=== PATIENT | female | born 1985 | race Caucasian/White ===

== ENCOUNTER 2016-11-28 03:44 | Emergency (ER) | payer SELFPAY ==
[~2016-11-28] VITALS: Ht 170.2 cm; Wt 72.6 kg
[2016-11-28] MEDS ORDERED: LORAZEPAM INJ 2 MG/ML VIAL ONE (03:59)
[2016-11-28] MEDS ORDERED: LORAZEPAM INJ 2 MG/ML VIAL IM ONE (04:00)
[2016-11-28 04:18] LABS: BASOPHILS % (AUTO) 0.3 % (0.0-2.0); EOSINOPHILS # (AUTO) 0.2 /CMM (0.0-0.7); EOSINOPHILS % (AUTO) 1.6 % (0.0-6.0); HEMATOCRIT 36 % (33-45); HEMOGLOBIN 11.9 g/dL (11.5-14.8); LYMPHOCYTES # (AUTO) 2.8 /CMM (0.8-4.8); LYMPHOCYTES % (AUTO) 28.9 % (20.0-44.0); MEAN CORPUSCULAR HEMOGLOBIN 31 PG (26.0-33.0); MEAN CORPUSCULAR HGB CONC 33 g/dl (31.0-36.0); MEAN CORPUSCULAR VOLUME 93 fL (82-100); MONOCYTES # (AUTO) 0.7 /CMM (0.1-1.30); MONOCYTES % (AUTO) 7.5 % (2.0-12.0); NEUTROPHILS % (AUTO) 61.7 % (43.0-81.0); PLATELET COUNT (AUTO) 268 /CMM (150-450); RDW COEFFICIENT OF VARIATION 14.7 (11.5-15.0); RED BLOOD CELL COUNT(AUTO) 3.87 MIL/uL (4.0-5.2); WHITE BLOOD COUNT (AUTO) 9.7 K/uL (4.3-11.0)
[2016-11-28 04:32] LABS: ALANINE AMINOTRANSFERASE 48 U/L (12-78); ALBUMIN 3.3 g/dL (3.4-5.0); ALCOHOL, BLOOD < 3 mg/dL (0-0); ALKALINE PHOSPHATASE 102 U/L (46-116); ASPARTATE AMINOTRANSFERASE 45 U/L (15-37); BILIRUBIN,DIRECT 0.1 mg/dL (0.0-0.2); BILIRUBIN,TOTAL 0.3 mg/dL (0.2-1.0); CALCIUM, SERUM 8.6 mg/dL (8.5-10.1); CARBON DIOXIDE 29 mmol/L (21-32); CHLORIDE 105 mmol/L (98-107); CREATININE 0.7 mg/dL (0.6-1.3); GLUCOSE 117 mg/dL (74-106); SALICYLATE 3.7 mg/dL (2.8-20.0); SODIUM SERUM 142 mmol/L (136-145); TOTAL PROTEIN, SERUM 6.6 g/dL (6.4-8.2); UREA NITROGEN, BLOOD 22 mg/dL (7-18)
[2016-11-28 04:33] LABS: POTASSIUM 2.8 mmol/L (3.5-5.1)
[2016-11-28 04:34] LABS: ACETAMINOPHEN 0 ug/ml (10-30)
--- NOTE | 2016-11-28 04:48 | NUR ---
URINE SPECIMEN COLLECTED VIA IN & OUT CATH.
[2016-11-28] MEDS ORDERED: POTASSIUM CHLORIDE 20 MEQ TAB.PRT.SR PO ONE ×3 (05:07→05:30)
--- NOTE | 2016-11-28 05:16 | NUR ---
POTASSIUM CHLORIDE 60 MEQ PO GIVEN FOR HYPOKALEMIA.
[2016-11-28 05:31] LABS: APPEARANCE,URINE CLEAR (CLEAR); BILIRUBIN,URINE NEGATIVE (NEGATIVE); BLOOD, URINE NEGATIVE Ery/uL (NEGATIVE); COLOR,URINE YELLOW (YELLOW); KETONES,URINE NEGATIVE (NEGATIVE); LEUKOCYTE ESTERASE ,URINE NEGATIVE (NEGATIVE); NITRITE, URINE NEGATIVE (NEGATIVE); PROTEIN,URINE NEGATIVE (NEGATIVE); UGLUCOSE NEGATIVE (NEGATIVE); UROBILINOGEN,URINE 0.2 EU/dL (0.2)
[2016-11-28 05:42] LABS: PREGNANCY TEST URINE QUAL NEGATIVE (NEGATIVE)
[2016-11-28 11:25] VITALS: BP 110/68
== END 2016-11-28 12:01 | disposition home or self-care (01) ==
LOC: ER 03:47
DX: E87.6 Hypokalemia (principal); F19.10 Other psychoactive substance abuse, uncomplicated
CPT/HCPCS: 36415; 80048; 80076; 80305; 80329; 81001; 82962; 84703; 85025; 96372; 99284; A4606; G0480 ×2; J2060; Z7610; 81000-TC

== ENCOUNTER 2017-01-18 13:43 | Emergency (ER) | payer SELFPAY ==
[~2017-01-18] VITALS: Ht 157.5 cm; Wt 80.3 kg
[2017-01-18 13:43] VITALS: BP 116/77
--- NOTE | 2017-01-18 13:50 | NUR ---
bibra from a friend's house dt bizzare behavior. Per report, pt was tring to break things from her friend's house. Patient received, alert and awake, still noted with bizzare behavior, laughing with no apparent reason, skin is warm to touch and non diaphoretic. afebrile. vss
[2017-01-18] MEDS ORDERED: diphenhydrAMINE HCL 50 MG/ML VIAL ONE (13:56)
[2017-01-18] MEDS ORDERED: LORAZEPAM INJ 2 MG/ML VIAL ONE (13:56)
[2017-01-18] MEDS ORDERED: HALOPERIDOL LACTATE INJ 5 MG/ML VIAL ONE (13:56)
[2017-01-18] MEDS ORDERED: diphenhydrAMINE HCL 50 MG/ML VIAL IM ONE (14:00)
[2017-01-18] MEDS ORDERED: LORAZEPAM INJ 2 MG/ML VIAL IM ONE (14:00)
[2017-01-18] MEDS ORDERED: HALOPERIDOL LACTATE INJ 5 MG/ML VIAL IM ONE (14:00)
[2017-01-18 14:05] LABS: BASOPHILS % (AUTO) 0.3 % (0.0-2.0); EOSINOPHILS # (AUTO) 0.3 /CMM (0.0-0.7); EOSINOPHILS % (AUTO) 3.2 % (0.0-6.0); HEMATOCRIT 37 % (33-45); HEMOGLOBIN 12.4 g/dL (11.5-14.8); LYMPHOCYTES # (AUTO) 1.9 /CMM (0.8-4.8); LYMPHOCYTES % (AUTO) 19.9 % (20.0-44.0); MEAN CORPUSCULAR HEMOGLOBIN 32 PG (26.0-33.0); MEAN CORPUSCULAR HGB CONC 34 g/dl (31.0-36.0); MEAN CORPUSCULAR VOLUME 93 fL (82-100); MONOCYTES # (AUTO) 0.8 /CMM (0.1-1.30); MONOCYTES % (AUTO) 8.6 % (2.0-12.0); NEUTROPHILS # (AUTO) 6.8 /CMM (1.8-8.9); PLATELET COUNT (AUTO) 279 /CMM (150-450); RDW COEFFICIENT OF VARIATION 12.5 (11.5-15.0); RED BLOOD CELL COUNT(AUTO) 3.94 MIL/uL (4.0-5.2); WHITE BLOOD COUNT (AUTO) 9.8 K/uL (4.3-11.0)
[2017-01-18 14:14] LABS: CALCIUM, SERUM 8.6 mg/dL (8.5-10.1); CARBON DIOXIDE 31 mmol/L (21-32); CHLORIDE 107 mmol/L (98-107); CREATININE 0.6 mg/dL (0.6-1.3); GLUCOSE 104 mg/dL (74-106); POTASSIUM 3.4 mmol/L (3.5-5.1); SODIUM SERUM 142 mmol/L (136-145); UREA NITROGEN, BLOOD 7 mg/dL (7-18)
[2017-01-18 14:19] LABS: ALANINE AMINOTRANSFERASE 32 U/L (12-78); ALBUMIN 3.1 g/dL (3.4-5.0); ALCOHOL, BLOOD < 3 mg/dL (0-0); ALKALINE PHOSPHATASE 78 U/L (46-116); ASPARTATE AMINOTRANSFERASE 24 U/L (15-37); BILIRUBIN,DIRECT 0.1 mg/dL (0.0-0.2); BILIRUBIN,TOTAL 0.5 mg/dL (0.2-1.0); TOTAL PROTEIN, SERUM 6.3 g/dL (6.4-8.2)
[2017-01-18 14:20] LABS: ACETAMINOPHEN 0 ug/ml (10-30)
--- NOTE | 2017-01-18 14:20 | NUR ---
Patient eloped from facility. ER MD notified.
--- NOTE | 2017-01-18 14:20 | NUR ---
PT NOT ON HOLD.
[2017-01-18 14:54] LABS: APPEARANCE,URINE Clear (CLEAR); BILIRUBIN,URINE SMALL (NEGATIVE); BLOOD, URINE Negative Ery/uL (NEGATIVE); COLOR,URINE Yellow (YELLOW); KETONES,URINE Trace (NEGATIVE); LEUKOCYTE ESTERASE ,URINE Negative (NEGATIVE); NITRITE, URINE Negative (NEGATIVE); PH,URINE 6.5 (5.0-8.0); PROTEIN,URINE 100 mg/dl (NEGATIVE); UGLUCOSE Negative (NEGATIVE); UROBILINOGEN,URINE 0.2 EU/dL (0.2)
[2017-01-18 14:56] LABS: PREGNANCY TEST URINE QUAL NEGATIVE (NEGATIVE)
[2017-01-18 15:02] LABS: BACTERIA,URINE None seen /HPF (None Seen); HYALINE CASTS, URINE Few /LPF (None Seen); MUCUS,URINE Few /LPF (None Seen); RBC,URINE 0-3 /HPF (0-2); SQUAMOUS EPITHELIAL CELL,UR Few /HPF (None Seen)
[2017-01-18 15:03] LABS: WBC,URINE 15-30 /HPF (0-3)
== END 2017-01-18 14:26 | disposition left against medical advice (07) ==
LOC: ER 13:46
DX: F31.9 Bipolar disorder, unspecified (principal); F15.10 Other stimulant abuse, uncomplicated
CPT/HCPCS: 36415; 80048; 80076; 80305; 80329; 81001; 84703; 85025; 96372 ×3; 99284; A4606; G0480 ×2; J1200; J1630; J2060; Z7610; 81000-TC